=== PATIENT | male | born 1955 | race African-American/Black ===

== ENCOUNTER 2017-01-13 08:19 | Day surgery (SDC) | payer OTHER ==
--- NOTE | ~2017-01-13 | EGD ---
EGD REPORT [facility] [address] [address] NAME: ISAÍAS CROCKETT : 57 STATUS : REG [facility] PAT#: [id number] AGE: 61 ADM/REG DATE : 01/13/17 MR#: [id number] REPORT SERV DATE: 01/13/17 DICTATED BY: ALEKSANDR MORGNA DATE: 01/13/17 REPORT STATUS : Draft TRANSCRIBED BY: [facility] DATE: 01/13/17 [facility] Patient Name: Isaías Crockett Date of : 1955 Attending MD: ALEKSANDR MORGAN MD Procedure Date No Time: 01/13/2017 Procedure: Upper GI endoscopy Indications: Cirrhosis rule out esophageal varices Medicines: Sedation Required Anesthesia Staff Assistance Complications: No immediate complications. Estimated blood loss: None. Procedure: After obtaining informed consent, the endoscope was passed under direct vision. Throughout the procedure, the patient's blood pressure, pulse, and oxygen saturations were monitored continuously. The GIF [id number] was introduced through the mouth, and advanced to the third part of duodenum. The upper GI endoscopy was accomplished without difficulty. The patient tolerated the procedure well. Findings: The examined esophagus was normal. A small hiatus hernia was present. The examined duodenum was normal. Impression: - Normal esophagus. - Hiatus hernia. - Normal examined duodenum. Recommendation: - Patient has a contact number available for emergencies. The signs and symptoms of potential delayed complications were discussed with the patient. Return to normal activities tomorrow. Written discharge instructions were provided to the patient. - Return to previous diet daily. - Continue present medications. - Discharge patient to home. Procedure Code(s): --- Professional --- 64737, Esophagogastroduodenoscopy, flexible, transoral; diagnostic, including collection of specimen(s) by brushing or washing, when performed (separate procedure) Diagnosis Code(s): --- Professional --- K44.9, Diaphragmatic hernia without obstruction or gangrene EGD REPORT [facility] [address] [place] [address] [place] [address] NAME: ISAÍAS CROCKETT : 57 STATUS : REG [facility] PAT#: [id number] AGE: 61 ADM/REG DATE : 01/13/17 MR#: [id number] REPORT SERV DATE: 01/13/17 DICTATED BY: ALEKSANDR MORGAN. DATE: 01/13/17 REPORT STATUS : Draft TRANSCRIBED BY: [employer] DATE: 01/13/17 K74.60, Unspecified cirrhosis of liver CPT copyright 2013 [employer]. All rights reserved. The codes documented in this report are preliminary and upon stopper maker helper review may be revised to meet current compliance requirements. ALEKSANDR MORGAN MD 01/13/2017 10:30 AM This report has been signed electronically. Number of Addenda: 0 Note Initiated On: 01/13/2017 10:09 AM Scope Withdrawal Time 0 hours 0 minutes 0 seconds [address] [place] [address]
[~2017-01-13 08:19] MED LIST: L40 PO; NORV10 PO; PRIN10 PO; RENVELA800 MG PO; T PO; VIT B COMPLEX PO
[2017-01-13 08:59] LABS: CALCIUM, SERUM 8.5 MG/DL (8.5-10.4); CHLORIDE, SERUM 101 MMOL/L (96-112); GFR AFRICAN AMERICAN 7 ML/MIN (>=60); GFR NON AFRICAN AMERICAN 6 ML/MIN (>=60); GLUCOSE, SERUM 93 MG/DL (60-99); SODIUM, SERUM 142 MMOL/L (135-148)
[2017-01-13 09:01] LABS: BUN (BLOOD UREA NITROGEN) 38 MG/DL (6-23); CO2 (CARBON DIOXIDE) 35 MMOL/L (24-34); CREATININE 9.11 MG/DL (0.70-1.30)
== END 2017-01-13 23:59 | disposition home or self-care (01) ==
LOC: DMU 08:19
PROVIDERS: Anesthesiology; Internal Medicine Gastroenterology
PROC: 0DJ08ZZ Inspection of Upper Intestinal Tract, Via Natural or Artificial Opening Endoscopic (ICD-10-PCS; principal; 2017-01-13 12:00)
DX: K44.9 Diaphragmatic hernia without obstruction or gangrene (principal); K74.60 Unspecified cirrhosis of liver; G47.33 Obstructive sleep apnea (adult) (pediatric); I12.0 Hypertensive chronic kidney disease with stage 5 chronic kidney disease or end stage renal disease; D63.1 Anemia in chronic kidney disease; N18.6 End stage renal disease; Z99.81 Dependence on supplemental oxygen; Z79.899 Other long term (current) drug therapy; Z87.891 Personal history of nicotine dependence; Z98.890 Other specified postprocedural states
CPT/HCPCS: 80048